=== PATIENT | male | born 1990 | race Two or more races ===

== ENCOUNTER 2018-02-03 19:35 | Emergency (ER) | payer MEDICAID, OTHER ==
[~2018-02-03] VITALS: Ht 172.7 cm; Wt 86.2 kg
[2018-02-03] MEDS ORDERED: LORazepam 2MG/ML-1ML VIAL ONE (20:04)
[2018-02-03] MEDS ORDERED: HALOPERIDOL LACTATE 5 MG/ML INJ VIAL ONE (20:04)
[2018-02-03] MEDS ORDERED: HALOPERIDOL LACTATE 5 MG/ML INJ VIAL IM ONE (20:15)
[2018-02-03] MEDS ORDERED: LORazepam 2MG/ML-1ML VIAL IM ONE (20:15)
[2018-02-03 22:03] LABS: Basophils # (auto) 0.1 uL; Basophils % (auto) 0.3 % (0.0-2.0); Eosinophils # (auto) 0 uL; Eosinophils % (auto) 0.3 % (0.0-7.0); Hematocrit 44.2 % (41.0-53.0); Lymphocytes # (auto) 1.1 uL; Lymphocytes % (auto) 7.2 % (10.0-50.0); Mean Corpuscular Hemoglobin 31.6 pg (28.0-32.0); Mean Corpuscular Hgb Conc. 33.9 g/dL (32.0-36.0); Mean Corpuscular Volume 93.4 fL (80.0-100.0); Neutrophils # (auto) 13.8 uL; Neutrophils % (auto) 86.2 % (37.0-80.0); Platelet Count (auto) 258 10^3/uL (140-450); Red Blood Cells 4.73 10^6/uL (4.5-5.90); Red Cell Distribution Width 12.9 % (11.8-14.3); White Blood Cell 16.1 10^3/uL (4.4-10.8)
[2018-02-03 22:16] LABS: Alanine Aminotransferase 30 U/L (16-61); Albumin 3.4 g/dL (3.4-5.0); Anion Gap 9 (5-15); Aspartate Aminotransferase 29 U/L (15-37); BUN/Creatinine Ratio 9.7; Blood Alcohol < 3.0 mg/dL (0-5); Blood Urea Nitrogen 9 mg/dL (7-18); Calcium 8.4 mg/dL (8.5-10.1); Carbon Dioxide 24 mmol/L (21-32); Chloride 109 mmol/L (98-107); GFR African American 126 mL/min; GFR Non-African American 104 mL/min; Glucose 97 mg/dL (74-106); Magnesium 2.2 mg/dL (1.6-2.6); Potassium 3.9 mmol/L (3.5-5.1); Sodium 142 mmol/L (136-145)
[2018-02-03 22:18] LABS: Salicylate < 1.7 mg/dL (2.8-20.0)
[2018-02-03 22:19] LABS: Alkaline Phosphatase 85 U/L (45-117); Bilirubin, Total 0.3 mg/dL (0.2-1.0); Total Protein 6.7 g/dL (6.4-8.2)
[2018-02-03 22:21] LABS: Acetaminophen < 2.0 ug/mL (10-30)
[2018-02-03] MEDS ORDERED: SODIUM CHLORIDE 0.9% 1,000 ML IV ONE (23:00)
[2018-02-04 01:35] LABS: Urine Bacteria NONE SEEN /hpf (None Seen); Urine Blood Negative /uL (Negative); Urine Mucus FEW (None Seen); Urine Specific Gravity 1.024 (1.001-1.035); Urine WBC <1 /hpf (0 - 3)
[2018-02-04 01:48] LABS: Amphetamine Screen, Urine NEGATIVE (NEGATIVE); Barbiturate Scree,Urine NEGATIVE (NEGATIVE); Benzodiazephine Screen, Urine NEGATIVE (NEGATIVE); Cannabinoid Screen, Urine NEGATIVE (NEGATIVE); Cocaine Screen, Urine NEGATIVE (NEGATIVE); Opiate Scree,Urine NEGATIVE (NEGATIVE); Phencyclidine Screen, Urine NEGATIVE (NEGATIVE)
[2018-02-05] MEDS: LORazepam 0.5 MG TAB PO PRN ×2 (13:42→22:52)
[2018-02-05] MEDS ORDERED: HALOPERIDOL LACTATE 5 MG/ML INJ VIAL IM PRN (14:00)
[2018-02-05] MEDS ORDERED: LORazepam 2MG/ML-1ML VIAL IM PRN (14:00)
[2018-02-05] MEDS ORDERED: cefTRIAXone SOD 1,000 MG VL IM ONE (19:45)
[2018-02-06] MEDS: HALOPERIDOL 5 MG TAB PO PRN ×2 (12:35→22:06)
[2018-02-06] MEDS: LORazepam 0.5 MG TAB PO PRN ×2 (12:35→22:06)
[2018-02-07 08:57] VITALS: BP 131/77
== END 2018-02-07 09:04 | disposition home or self-care (01) ==
LOC: EDBD 19:35 → ER 19:39
DX: F32.9 Major depressive disorder, single episode, unspecified (principal); R45.851 Suicidal ideations
CPT/HCPCS: 36415; 36600; 70450; 71045; 80053; 80307; 80320; 80329; 81001; 82805; 83735; 85025; 93005; 96372; 99285; J1630; J2060; J7030; 94761; 96360; A4565